=== PATIENT | male | born 1985 | race Caucasian/White ===

== ENCOUNTER 2024-04-28 08:10 | Emergency (ER) | payer BC ==
[2024-04-28] MEDS: Sodium Chloride 0.9% 1,000 ML IV ONE (08:43)
[2024-04-28 08:52] LABS: HEMOGLOBIN 14.2 g/dL (14.0-18.0); MEAN CORPUSCULAR HEMOGLOBIN 25.1 pg (28.0-32.0); MEAN PLATELET VOLUME 9.4 fL (9.4-12.4); PLATELET COUNT,PLT 257 K/uL (150-400); RED BLOOD CELL COUNT 5.66 M/uL (4.52-5.90); WHITE BLOOD CELL COUNT,WBC 8.89 K/uL (3.9-11.3)
[2024-04-28 09:11] LABS: A/G RATIO 0.7 (0.9-1.6); ALBUMIN 2.8 g/dL (3.4-5.0); BILIRUBIN TOTAL 0.8 mg/dL (0.2-1.0); CALCIUM 8.7 mg/dL (8.5-10.1); CARBON DIOXIDE,CO2 21.8 mmol/L (21.0-32.0); EST CRCL DRUG DOSING (CG) 109.93 mL/min; POTASSIUM,K 3.1 mmol/L (3.5-5.1); PROTEIN TOTAL,TP 6.7 g/dL (6.4-8.2)
[2024-04-28] MEDS: Potassium Chloride 20 MEQ Tab.ER PO ONE (09:26)
[2024-04-28 09:27] LABS: LACTIC ACID 1.3 mmol/L (0.4-2.0)
[2024-04-28] MEDS: Sodium Chloride 0.9% 1,000 ML IV STA (09:28)
[2024-04-28 09:29] LABS: BAND ABSOLUTE MAN 2.58; BAND PERCENT MAN 29 %; EOSINOPHILS ABSOLUTE MAN 0.18 K/uL (0.00-0.45); EOSINOPHILS PERCENT MAN 2 % (0-6); LYMPHOCYTES ABSOLUTE MAN 1.07 K/uL (1.00-4.80); LYMPHOCYTES PERCENT MAN 12 % (24-44); METAMYELOCYTE ABSOLUTE MAN 0.44; METAMYELOCYTE PERCENT MAN 5 %; MONOCYTES ABSOLUTE MAN 0.71 K/uL (0.00-0.80); MONOCYTES PERCENT MAN 8 % (0-8); SEG NEUTROPHILS ABSOLUTE MAN 3.91 K/uL (1.80-7.70); SEG NEUTROPHILS PERCENT MAN 44 % (41-71)
== END 2024-04-28 10:48 | disposition home or self-care (01) ==
LOC: MW.ED 08:10
DX: K51.90 Ulcerative colitis, unspecified, without complications (principal); Z79.899 Other long term (current) drug therapy
CPT/HCPCS: 36415; 80053; 83605; 83690; 85025; 96360; 96361; 99284; A9270; J7030

== ENCOUNTER 2024-05-08 07:13 | Emergency (ER) | payer BC ==
[2024-05-08] MEDS: Sodium Chloride 0.9% 1,000 ML IV SCH ×2 (07:35→09:36)
[2024-05-08] MEDS: Metoclopramide 10 MG/2 ML SDV IVPUSH ONE (07:35)
[2024-05-08] MEDS: traMADol 50 MG Tab PO ONE (07:36)
[2024-05-08 07:37] LABS: BASOPHILS ABSOLUTE AUTO 0.03 K/uL (0.00-0.20); BASOPHILS PERCENT AUTO 0.2 % (0.0-1.0); EOSINOPHILS ABSOLUTE AUTO 0.07 K/uL (0.00-0.45); EOSINOPHILS PERCENT AUTO 0.5 % (0.0-6.0); HEMATOCRIT 40.5 % (42.0-52.0); HEMOGLOBIN 13.4 g/dL (14.0-18.0); IMMATURE GRAN PERCENT AUTO 0.7 % (0.0-0.4); LYMPHOCYTES ABSOLUTE AUTO 1.21 K/uL (1.00-4.80); LYMPHOCYTES PERCENT AUTO 9.1 % (24.0-44.0); MEAN CORPUSCULAR HEMOGLOBIN 25.3 pg (28.0-32.0); MEAN CORPUSCULAR HGB CONC 33.1 g/dL (32.0-36.0); MEAN CORPUSCULAR VOLUME 76.4 fL (83.0-99.0); MEAN PLATELET VOLUME 8.3 fL (9.4-12.4); MONOCYTES ABSOLUTE AUTO 1.38 K/uL (0.00-0.80); MONOCYTES PERCENT AUTO 10.3 % (0.0-8.0); NEUTROPHILS ABSOLUTE AUTO 10.57 K/uL (1.80-7.70); NEUTROPHILS PERCENT AUTO 79.2 % (41.0-71.0); PLATELET COUNT,PLT 521 K/uL (150-400); WHITE BLOOD CELL COUNT,WBC 13.36 K/uL (3.9-11.3)
[2024-05-08 07:53] LABS: A/G RATIO 0.5 (0.9-1.6); ALBUMIN 2.2 g/dL (3.4-5.0); BILIRUBIN TOTAL 0.9 mg/dL (0.2-1.0); CALCIUM 8.8 mg/dL (8.5-10.1); CARBON DIOXIDE,CO2 26.1 mmol/L (21.0-32.0); CREATININE 1.2 mg/dL (0.8-1.3); EST CRCL DRUG DOSING (CG) 90.71 mL/min; POTASSIUM,K 3.2 mmol/L (3.5-5.1); PROTEIN TOTAL,TP 6.6 g/dL (6.4-8.2)
[2024-05-08] MEDS: Potassium Chloride 20 MEQ Tab.ER PO ONE (08:34)
[2024-05-08 11:13] LABS: CALCIUM 7.6 mg/dL (8.5-10.1); CARBON DIOXIDE,CO2 25.9 mmol/L (21.0-32.0); CREATININE 0.9 mg/dL (0.8-1.3); EST CRCL DRUG DOSING (CG) 120.95 mL/min; POTASSIUM,K 3.9 mmol/L (3.5-5.1)
== END 2024-05-08 11:38 | disposition home or self-care (01) ==
LOC: MW.ED 07:13
DX: E86.0 Dehydration (principal); E87.6 Hypokalemia; E87.1 Hypo-osmolality and hyponatremia; Z90.49 Acquired absence of other specified parts of digestive tract
CPT/HCPCS: 36415; 80048; 80053; 83690; 85025; 96361; 96374; 99284; A9270; J2765; J7030